=== PATIENT | female | born 1955 | race Caucasian/White ===

== ENCOUNTER 2017-11-29 15:38 | Emergency (ER) | payer SELFPAY ==
[~2017-11-29 15:38] MED LIST: AMBI5TAB PO; ASPI81TA82 PO; CALC-137 PO; CALC500T35 PO; CITA-48 PO; GABA600T PO; HYDR-3533 PO; LISI-360 PO; LORA-474 PO; LOVA20TA PO
[2017-11-29 15:40] VITALS: BP 144/67; PULSE 78; RESP 16; TEMP 97.3; O2SAT 96
[2017-11-29] MEDS ORDERED: CIPR0.2S RIGHT EAR (15:53)
[2017-11-29] MEDS ORDERED: BACT800T5 PO (15:53)
--- NOTE | 2017-11-29 15:56 | PD ---
HPI Chief Complaint: ENT Complaint Time Seen by Provider: 15:46 Travel History International Travel<30 days: No Contact w/Intl Traveler<30days: No Traveled to known affect area: No History of Present Illness HPI 62-year-old female presents the emergency department for evaluation of right ear pain that started approximately 10 days ago. Patient says that the pain is located in the anterior without radiation. Says the pain is throbbing and she has diminished hearing as a result. The pain is mild to moderate in severity. Says that she inserted a Q-tip into her ear when the pain started. She has a history of similar pain in incident approximately 7 months ago. Says she went to [facility] and was given eardrops and oral antibiotics and this resolved her pain and condition. She did not follow-up with an director of research at the time and does not currently have a primary care physician. She denies fevers or chills. Denies upper respiratory symptoms. PFSH Past Medical History Bipolar Disorder: Yes Heart Rhythm Problems: No Cardiac Catheterization: No Cardiovascular Problems: Yes High Cholesterol: Yes Congestive Heart Failure: No Diabetes: Yes Patient Takes Glucophage: No Diminished Hearing: No Hypertension: Yes Immunizations Current: Yes Tetanus Vaccination: < 5 Years Influenza Vaccination: Yes ?: Not Menopausal: Yes Past Surgical History Coronary Artery Bypass Graft: No Hysterectomy: Yes Tonsillectomy: Yes Family History Family Myocardial Infarction: Yes Social History Alcohol Use: No Tobacco Use: Yes (1 pk) Substance Use: No Allergies-Medications (Allergen,Severity, Reaction): Coded Allergies: No Known Allergies (Verified Adverse Reaction, Unknown, 11/29/17) Reported Meds & Prescriptions Reported Meds & Active Scripts Active Ciprofloxacin Otic Drops 0.2% Soln 0.25 Ml RIGHT EAR BID 7 Days Bactrim DS (Sulfamethoxazole-Trimethoprim) 800-160 Mg Tab 1 Tab PO BID Review of Systems Except as stated in HPI: all other systems reviewed are Neg Physical Exam Narrative GENERAL: Well-developed, well-nourished no apparent distress SKIN: Focused skin assessment warm/dry. HEAD: Atraumatic. Normocephalic. EYES: Pupils equal and round. No scleral icterus. No injection or drainage. ENT: No nasal bleeding or discharge. Mucous membranes pink and moist. Right ear-tenderness to palpation of the tragus. Ear discharge yellow in color, pain with exam. TM appears flaccid and discharge present. slight edema without complete occlusion. No TTP of TMJ. No clocking or popping of jaw. Left ear canal without discharge or erythema. Tympanic membrane pearly alvarenga without bulging. NECK: Trachea midline. No JVD. CARDIOVASCULAR: Regular rate and rhythm. No murmur appreciated. RESPIRATORY: No accessory muscle use. Clear to auscultation. Breath sounds equal bilaterally. MUSCULOSKELETAL: No obvious deformities. No clubbing. No cyanosis. No edema. NEUROLOGICAL: Awake and alert. No obvious cranial nerve deficits. Motor grossly within normal limits. Normal speech. PSYCHIATRIC: Appropriate mood and affect; insight and judgment normal. Data Data Last Documented VS Vital Signs Date Time Temp Pulse Resp B/P (MAP) Pulse Ox O2 Delivery O2 Flow Rate FiO2 11/29/17 15:40 97.3 78 16 144/67 (92) 96 Orders Orders Ed Discharge Order (11/29/17 15:56) MDM Medical Decision Making Medical Screen Exam Complete: Yes Emergency Medical Condition: Yes Differential Diagnosis Right otitis externa, otitis media, cellulitis Narrative Course 62-year-old female presents emergency department for evaluation of right ear pain that started after she inserted a Q-tip 10 days ago. Says that the pain is located in her ear and she noticed some yellow discharge the same day. Says she has a history of this approximately 7 months ago and was given eardrops and oral antibiotics and the pain resolved spontaneously. Her vital signs are stable. Physical exam findings consistent with a likely ruptured tympanic membrane with associated otitis externa. Patient says that she no longer has insurance and she does not follow a primary care physician or a nose and throat specialist. We will prescribe Cipro eardrops. Bactrim for possible developing cellulitis as patient does not have a primary care physician and is unlikely to follow-up with an director of research. She has no other questions or concerns for me today. Diagnosis Primary Impression: Otitis externa Qualified Codes: H60.391 - Other infective otitis externa, right ear Additional Impression: Abnormal tympanic membrane Qualified Codes: H73.91 - Unspecified disorder of tympanic membrane, right ear Referrals: [facility] N[facility] Throat Specialist [facility] Patient Instructions: Ear Infection (ED), General Instructions Additional Instructions: Consider following up with [facility] or [facility] for further evaluation. Take all medication as prescribed. Scripts Ciprofloxacin Otic Drops (Ciprofloxacin Otic Drops) 0.2% Soln 0.25 ML RIGHT EAR BID for Infection for 7 Days, #1 BOX 0 Refills Prov: Fani Lane MD 11/29/17 Sulfamethoxazole-Trimethoprim (Bactrim DS) 800-160 Mg Tab 1 TAB PO BID for Infection, #14 TAB 0 Refills Prov: Fani Lane MD 11/29/17 Disposition: 01 DISCHARGE HOME Condition: Stable [place] Nov 29, 2017 15:56
== END 2017-11-29 16:02 | disposition home or self-care (01) ==
LOC: PHEFT 15:38
DX: H60.91 Unspecified otitis externa, right ear (principal); H73.91 Unspecified disorder of tympanic membrane, right ear; F31.9 Bipolar disorder, unspecified; E78.00 Pure hypercholesterolemia, unspecified; E11.9 Type 2 diabetes mellitus without complications; I10 Essential (primary) hypertension; F17.200 Nicotine dependence, unspecified, uncomplicated
CPT/HCPCS: 99283